=== PATIENT | male | born 1985 | race Caucasian/White ===

== ENCOUNTER 2024-05-04 02:12 | Emergency (ER) | payer BC, OTHER, SELFPAY ==
[2024-05-04 02:40] LABS: #Basophils 0.03 10x3/uL (0.0-0.2); #Eosinophils 0.24 10x3/uL (0.0-0.5); #Monocytes 0.83 10x3/uL (0.0-1.1); #Neutrophils 7.05 10x3/uL (1.5-8.4); %Basophils 0.3 % (0.0-2.0); %Lymphocytes 31.3 % (18.0-47.0); %Neutrophils 59.1 % (40.0-75.0); Hematocrit 45.4 % (38.8-50.0); Hemoglobin 16.2 g/dL (13.5-17.5); Mean Corpuscular HGB CONC 35.7 g/dL (32.0-36.0); Mean Corpuscular Hemoglobin 31.5 pg (27.0-33.0); Mean Corpuscular Volume 88.3 fL (81.2-95.1); Mean Platelet Volume 8.7 fL (7.4-10.4); Platelet Count 208 10x3/uL (150-450); RBC Distribution Width 11.9 % (11.5-14.5); Red Blood Cell (RBC) Count 5.14 10x6/uL (4.32-5.72); White Blood Cell (WBC) Count 11.9 10x3/uL (3.5-10.5)
[2024-05-04 02:48] LABS: ALT (SGPT) 32 U/L (8-55); AST (SGOT) 24 U/L (5-34); Albumin 4.2 g/dL (3.5-5.0); Alkaline Phosphatase 42 U/L (40-110); Anion Gap 19 mmol/L (10-20); BUN (Urea Nitrogen) 13 mg/dL (8.9-20.6); Bilirubin, Total 0.6 mg/dL (0.2-1.2); Calc. Creatinine Clearance 0 mL/min (70-130); Calcium 9.5 mg/dL (7.8-10.44); Carbon Dioxide 21 mmol/L (22-29); Chloride 106 mmol/L (98-107); Estimated GFR 86; Globulin 3.3 g/dL (2.4-3.5); Glucose 102 mg/dL (70-105); Potassium 3.5 mmol/L (3.5-5.1); Protein, Total 7.5 g/dL (6.0-8.3); Sodium 142 mmol/L (136-145)
[2024-05-04] MEDS ORDERED: Etomidate 40 MG (20 mL) VIAL ONE (02:51)
[2024-05-04 02:54] LABS: Troponin I Less than 0.010 ng/mL (< 0.028)
[2024-05-04] MEDS ORDERED: Enoxaparin 80 MG (0.8 mL) SYRINGE ONE (03:45)
[2024-05-04] MEDS ORDERED: Metoprolol Tartrate 25 MG TAB ONE (04:19)
[2024-05-04 05:36] LABS: Troponin I Less than 0.010 ng/mL (< 0.028)
== END 2024-05-04 06:02 | disposition home or self-care (01) ==
LOC: CSHERS 02:12
DX: I48.91 Unspecified atrial fibrillation (principal)
CPT/HCPCS: 36415; 71045; 80053; 83690; 83880; 84443; 84484; 85025; 92960; 93005; 96360; 96372; 99152; J1650